=== PATIENT | female | born 1965 | race Caucasian/White ===

== ENCOUNTER → 2023-02-22 13:02 | Outpatient (CLI) | payer SELFPAY ==
[2023-02-24 21:20] LABS: QuantiFERON Mitogen Value >10.00 IU/mL (.); QuantiFERON Nil Value 0.42 IU/mL (.); QuantiFERON TB Gold Plus Negative (Negative); QuantiFERON TB2 Ag Value 0.34 IU/mL (.)
== END ==
DX: Z11.1 Encounter for screening for respiratory tuberculosis (principal)
CPT/HCPCS: 36415; 86480